=== PATIENT | male | born 1955 | race Caucasian/White ===

== ENCOUNTER 2016-09-19 16:36 | Emergency (ER) | payer OTHER, MEDICARE ==
[~2016-09-19] VITALS: Ht 175.2 cm; Wt 57.6 kg
[~2016-09-19 16:36] MED LIST: ASPIRIN DELAYE325 MG PO; ASPIRIN81 M1 PO; ATROVENT0.018 MG/A INH; CIPRO500 MG PO; CIPRODEX 0.3%-7.5 ML OT; CLARITIN10 MG PO; DAYPRO600 M1 PO; DOXYCYCLINE100 M2 PO; NKHM; PREDNICOT20 MG PO; PREDNISONE10 MG PO; TRIMOX500 MG PO; TYLENOL325 M2 PO; Tessalon Perle100 MG PO; VIBRAMYCIN100 MG PO; VITAMIN D400 I1 PO
[2016-09-19 17:32] LABS: BASO # 0.2 10*3/uL (0.0-0.1); BASO % 2.1 % (0.0-1.0); EOS # 0.5 10*3/uL (0.0-0.4); EOS % 4.9 % (1.0-4.0); HEMOGLOBIN 15.4 g/dl (14.0-18.0); LYMPH # 2.7 10*3/uL (1.3-4.4); LYMPH % 28.2 % (27.0-41.0); MEAN CELL VOLUME 93.4 fl (80.0-94.0); MEAN CORPUSCULAR HGB 32.7 pg (27.0-31.0); MEAN PLATELET VOLUME 9.5 fl (9.6-12.3); MONO # 0.9 10*3/uL (0.1-1.0); MONO % 8.8 % (3.0-9.0); NEUT # 5.4 10*3/uL (2.3-7.9); NEUT % 55.7 % (47.0-73.0); PLATELET COUNT AUTOMATED 239 10*3/uL (130-400); RED BLOOD COUNT 4.71 10*6/uL (4.50-5.90); RED CELL DISTRI WIDTH 12.8 % (0-14.5); WHITE BLOOD COUNT 9.7 10*3/uL (4.8-10.8)
[2016-09-19 17:44] LABS: BUN 11 mg/dl (7-24); CARBON DIOXIDE 25 mmol/L (21-32); CHLORIDE 103 mmol/L (98-107); EST GLOM FILT AFRICAN AMERICAN > 60 ml/min; GLUCOSE 105 mg/dL (65-99); POTASSIUM 3.8 mmol/L (3.5-5.1); SODIUM 140 mmol/L (136-145)
[2016-09-19 18:08] LABS: BILIRUBIN NEGATIVE (NEGATIVE); BLOOD NEGATIVE (NEGATIVE); CLARITY SL CLOUDY (CLEAR); COLOR YELLOW (YELLOW); GLUCOSE NEGATIVE (NEGATIVE); KETONE NEGATIVE (NEGATIVE); LEUKO ESTERASE NEGATIVE (NEGATIVE); NITRITE NEGATIVE (NEGATIVE); PROTEIN NEGATIVE (NEGATIVE); SPECIFIC GRAVITY <= 1.005 (1.005-1.030); UROBILINOGEN 0.2 E.U./dl (0.2-1.0)
[2016-09-19 18:24] LABS: BACTERIA TRACE; EPITHELIAL CELLS 0-2; RBC 0-2 rbc/hpf (0-2); URINE REFLEX COMMENT NO (NO); WBC 0-2 wbc/hpf (0-5)
== END 2016-09-19 19:43 | disposition home or self-care (01) ==
LOC: ED 16:36
PROVIDERS: Emergency Medicine
DX: F41.9 Anxiety disorder, unspecified (principal); R20.0 Anesthesia of skin; M79.661 Pain in right lower leg; F17.200 Nicotine dependence, unspecified, uncomplicated; Z79.82 Long term (current) use of aspirin; Z79.899 Other long term (current) drug therapy; Z85.46 Personal history of malignant neoplasm of prostate

== ENCOUNTER 2016-09-30 19:33 | Emergency (ER) | payer MEDICARE, OTHER ==
[~2016-09-30] VITALS: Ht 175.2 cm; Wt 57.6 kg
[2016-09-30 20:07] LABS: BASO # 0.2 10*3/uL (0.0-0.1); BASO % 2.7 % (0.0-1.0); EOS # 0.5 10*3/uL (0.0-0.4); EOS % 7.3 % (1.0-4.0); HEMOGLOBIN 14.9 g/dl (14.0-18.0); LYMPH # 3.2 10*3/uL (1.3-4.4); MEAN CELL VOLUME 93.7 fl (80.0-94.0); MEAN CORPUSCULAR HGB 32.5 pg (27.0-31.0); MEAN CORPUSCULAR HGB CONC 34.7 g/dl (33.0-37.0); MEAN PLATELET VOLUME 9.1 fl (9.6-12.3); MONO # 0.7 10*3/uL (0.1-1.0); NEUT # 2.7 10*3/uL (2.3-7.9); NEUT % 36.9 % (47.0-73.0); PLATELET COUNT AUTOMATED 224 10*3/uL (130-400); RED BLOOD COUNT 4.59 10*6/uL (4.50-5.90); RED CELL DISTRI WIDTH 13.1 % (0-14.5); WHITE BLOOD COUNT 7.3 10*3/uL (4.8-10.8)
[2016-09-30 20:23] LABS: ALBUMIN 3.7 gm/dl (3.1-4.5); ALKALINE PHOSPHATASE 60 U/L (45-117); BILIRUBIN, TOTAL 0.4 mg/dl (0.2-1.0); BUN 11 mg/dl (7-24); CARBON DIOXIDE 25 mmol/L (21-32); CHLORIDE 103 mmol/L (98-107); EST GLOM FILT AFRICAN AMERICAN > 60 ml/min; GLUCOSE 87 mg/dL (65-99); POTASSIUM 3.7 mmol/L (3.5-5.1); SGOT/AST 35 IU/L (3-35); SGPT/ALT 21 U/L (12-78); SODIUM 141 mmol/L (136-145); TOTAL PROTEIN 7.4 gm/dL (6.4-8.2)
[2016-09-30 20:30] LABS: BILIRUBIN NEGATIVE (NEGATIVE); BLOOD NEGATIVE (NEGATIVE); CLARITY CLEAR (CLEAR); COLOR YELLOW (YELLOW); GLUCOSE NEGATIVE (NEGATIVE); KETONE NEGATIVE (NEGATIVE); LEUKO ESTERASE NEGATIVE (NEGATIVE); NITRITE NEGATIVE (NEGATIVE); PROTEIN NEGATIVE (NEGATIVE); SPECIFIC GRAVITY <= 1.005 (1.005-1.030); UROBILINOGEN 0.2 E.U./dl (0.2-1.0)
[2016-09-30 20:36] LABS: BACTERIA 1+; URINE REFLEX COMMENT NO (NO); WBC 0-2 wbc/hpf (0-5)
[2016-09-30 20:38] LABS: URINE AMPHETAMINES < 1000 (1000ng/ml); URINE BARBITURATES < 200 (200ng/ml); URINE COCAINE < 300 (300ng/ml)
== END 2016-10-01 08:37 | disposition home or self-care (01) ==
LOC: ED 19:33
PROVIDERS: Emergency Medicine Emergency Medical Services
DX: F10.120 Alcohol abuse with intoxication, uncomplicated (principal); F41.9 Anxiety disorder, unspecified; F17.200 Nicotine dependence, unspecified, uncomplicated; Z85.46 Personal history of malignant neoplasm of prostate; Z79.82 Long term (current) use of aspirin; Z79.899 Other long term (current) drug therapy

== ENCOUNTER 2016-10-16 18:42 | Emergency (ER) | payer MEDICARE, OTHER ==
[~2016-10-16] VITALS: Ht 177.8 cm; Wt 74.8 kg
[2016-10-16 19:48] LABS: BASO # 0.2 10*3/uL (0.0-0.1); BASO % 2.4 % (0.0-1.0); EOS # 0.4 10*3/uL (0.0-0.4); EOS % 5.5 % (1.0-4.0); HEMOGLOBIN 13.7 g/dl (14.0-18.0); LYMPH # 2.1 10*3/uL (1.3-4.4); LYMPH % 29.2 % (27.0-41.0); MEAN CELL VOLUME 94.8 fl (80.0-94.0); MEAN CORPUSCULAR HGB 32.5 pg (27.0-31.0); MEAN CORPUSCULAR HGB CONC 34.3 g/dl (33.0-37.0); MONO # 0.6 10*3/uL (0.1-1.0); MONO % 8.8 % (3.0-9.0); NEUT # 3.8 10*3/uL (2.3-7.9); PLATELET COUNT AUTOMATED 214 10*3/uL (130-400); RED BLOOD COUNT 4.22 10*6/uL (4.50-5.90); RED CELL DISTRI WIDTH 13.1 % (0-14.5); WHITE BLOOD COUNT 7.1 10*3/uL (4.8-10.8)
[2016-10-16 20:00] LABS: BUN 8 mg/dl (7-24); CARBON DIOXIDE 27 mmol/L (21-32); CHLORIDE 108 mmol/L (98-107); EST GLOM FILT AFRICAN AMERICAN > 60 ml/min; GLUCOSE 90 mg/dL (65-99); POTASSIUM 3.3 mmol/L (3.5-5.1); SODIUM 146 mmol/L (136-145)
[2016-10-16 20:08] LABS: BILIRUBIN NEGATIVE (NEGATIVE); BLOOD NEGATIVE (NEGATIVE); CLARITY CLEAR (CLEAR); COLOR YELLOW (YELLOW); GLUCOSE NEGATIVE (NEGATIVE); KETONE NEGATIVE (NEGATIVE); LEUKO ESTERASE NEGATIVE (NEGATIVE); NITRITE NEGATIVE (NEGATIVE); PH 5.5 (5.0-9.0); PROTEIN NEGATIVE (NEGATIVE); SPECIFIC GRAVITY <= 1.005 (1.005-1.030); UROBILINOGEN 0.2 E.U./dl (0.2-1.0)
[2016-10-16 20:18] LABS: URINE AMPHETAMINES < 1000 (1000ng/ml); URINE BARBITURATES < 200 (200ng/ml); URINE COCAINE < 300 (300ng/ml)
[2016-10-16 20:31] LABS: EPITHELIAL CELLS 0-2
== END 2016-10-17 10:30 | disposition home or self-care (01) ==
LOC: ED 18:42
PROVIDERS: Emergency Medicine Emergency Medical Services
DX: F10.120 Alcohol abuse with intoxication, uncomplicated (principal); F41.9 Anxiety disorder, unspecified; F17.200 Nicotine dependence, unspecified, uncomplicated; E78.5 Hyperlipidemia, unspecified; Z79.82 Long term (current) use of aspirin

== ENCOUNTER 2016-12-27 08:33 | Emergency (ER) | payer MEDICARE, OTHER ==
[~2016-12-27] VITALS: Ht 167.6 cm; Wt 57.6 kg
[2016-12-27 08:59] LABS: BASO # 0.1 10*3/uL (0.0-0.1); BASO % 1.6 % (0.0-1.0); EOS # 0.4 10*3/uL (0.0-0.4); EOS % 4.9 % (1.0-4.0); HEMATOCRIT 42.6 % (42.0-52.0); HEMOGLOBIN 14.2 g/dl (14.0-18.0); LYMPH # 1.5 10*3/uL (1.3-4.4); LYMPH % 16.5 % (27.0-41.0); MEAN CELL VOLUME 96.8 fl (80.0-94.0); MEAN CORPUSCULAR HGB 32.3 pg (27.0-31.0); MEAN CORPUSCULAR HGB CONC 33.3 g/dl (33.0-37.0); MEAN PLATELET VOLUME 9.5 fl (9.6-12.3); MONO # 0.8 10*3/uL (0.1-1.0); MONO % 9.3 % (3.0-9.0); NEUT # 5.9 10*3/uL (2.3-7.9); NEUT % 67.5 % (47.0-73.0); PLATELET COUNT AUTOMATED 232 10*3/uL (130-400); RED CELL DISTRI WIDTH 14.2 % (0-14.5); WHITE BLOOD COUNT 8.8 10*3/uL (4.8-10.8)
[2016-12-27 09:07] LABS: PROTHROMBIN TIME 10.9 SECONDS (9.0-12.4)
[2016-12-27 09:14] LABS: ALKALINE PHOSPHATASE 67 U/L (45-117); BILIRUBIN, TOTAL 0.5 mg/dl (0.2-1.0); BUN 7 mg/dl (7-24); C-REACTIVE PROTEIN 1.28 MG/DL (0-0.3); CARBON DIOXIDE 29 mmol/L (21-32); CHLORIDE 108 mmol/L (98-107); CKMB 2.1 ng/ml (0.5-3.6); CPK 421 U/L (39-308); EST GLOM FILT AFRICAN AMERICAN > 60 ml/min; GLUCOSE 102 mg/dL (65-99); MAGNESIUM 1.9 mg/dL (1.5-2.1); POTASSIUM 3.4 mmol/L (3.5-5.1); SGOT/AST 42 IU/L (3-35); SGPT/ALT 28 U/L (12-78); SODIUM 144 mmol/L (136-145); TOTAL PROTEIN 6.5 gm/dL (6.4-8.2)
[2016-12-27 09:17] LABS: TROPONIN I < 0.015 ng/ml (<0.045)
== END 2016-12-27 10:31 | disposition home or self-care (01) ==
LOC: ED 08:33
PROVIDERS: Emergency Medicine
DX: R55 Syncope and collapse (principal); J44.9 Chronic obstructive pulmonary disease, unspecified; F17.210 Nicotine dependence, cigarettes, uncomplicated; Z79.82 Long term (current) use of aspirin; Z79.899 Other long term (current) drug therapy; Z85.46 Personal history of malignant neoplasm of prostate

== ENCOUNTER 2017-01-07 16:19 | Emergency (ER) | payer OTHER ==
[~2017-01-07] VITALS: Ht 177.8 cm; Wt 68.0 kg
[2017-01-07 16:39] LABS: BASO # 0.2 10*3/uL (0.0-0.1); BASO % 1.7 % (0.0-1.0); EOS # 0.7 10*3/uL (0.0-0.4); EOS % 6.6 % (1.0-4.0); HEMATOCRIT 40.7 % (42.0-52.0); HEMOGLOBIN 13.8 g/dl (14.0-18.0); LYMPH # 2.7 10*3/uL (1.3-4.4); LYMPH % 25.7 % (27.0-41.0); MEAN CELL VOLUME 97.4 fl (80.0-94.0); MEAN CORPUSCULAR HGB CONC 33.9 g/dl (33.0-37.0); MEAN PLATELET VOLUME 9.4 fl (9.6-12.3); MONO % 9.8 % (3.0-9.0); NEUT # 5.8 10*3/uL (2.3-7.9); NEUT % 55.9 % (47.0-73.0); PLATELET COUNT AUTOMATED 258 10*3/uL (130-400); RED BLOOD COUNT 4.18 10*6/uL (4.50-5.90); RED CELL DISTRI WIDTH 14.2 % (0-14.5); WHITE BLOOD COUNT 10.4 10*3/uL (4.8-10.8)
[2017-01-07] MEDS ORDERED: NEURONTIN100 MG PO (16:50)
[2017-01-07] MEDS ORDERED: MELATONIN3 MG PO (16:50)
[2017-01-07] MEDS ORDERED: CELEXA20 MG PO (16:51)
[2017-01-07] MEDS ORDERED: CETIRIZINE10 MG PO (16:51)
[2017-01-07 16:53] LABS: BUN 8 mg/dl (7-24); CARBON DIOXIDE 22 mmol/L (21-32); CHLORIDE 107 mmol/L (98-107); EST GLOM FILT AFRICAN AMERICAN > 60 ml/min; GLUCOSE 79 mg/dL (65-99); POTASSIUM 3.3 mmol/L (3.5-5.1); SODIUM 141 mmol/L (136-145)
== END 2017-01-07 17:39 | disposition home or self-care (01) ==
LOC: ED 16:19
PROVIDERS: Emergency Medicine
DX: R55 Syncope and collapse (principal); R53.1 Weakness; R42 Dizziness and giddiness; J44.9 Chronic obstructive pulmonary disease, unspecified; Z79.82 Long term (current) use of aspirin; Z79.899 Other long term (current) drug therapy

== ENCOUNTER 2017-04-14 17:55 | Emergency (ER) | payer MEDICARE, OTHER ==
[~2017-04-14] VITALS: Ht 175.2 cm; Wt 55.3 kg
[~2017-04-14 17:55] MED LIST changes: +CELEXA20 MG PO; +CETIRIZINE10 MG PO; +MELATONIN3 MG PO; +NEURONTIN100 MG PO
[2017-04-14 19:39] LABS: HEMATOCRIT 43.5 % (42.0-52.0); MEAN CELL VOLUME 93.1 fl (80.0-94.0); MEAN CORPUSCULAR HGB 32.1 pg (27.0-31.0); MEAN CORPUSCULAR HGB CONC 34.5 g/dl (33.0-37.0); MEAN PLATELET VOLUME 9.4 fl (9.6-12.3); PLATELET COUNT AUTOMATED 276 10*3/uL (130-400); RED BLOOD COUNT 4.67 10*6/uL (4.50-5.90); RED CELL DISTRI WIDTH 13.6 % (0-14.5); WHITE BLOOD COUNT 9.7 10*3/uL (4.8-10.8)
[2017-04-14 19:53] LABS: ALBUMIN 3.7 gm/dl (3.1-4.5); ALKALINE PHOSPHATASE 89 U/L (45-117); BUN 9 mg/dl (7-24); CHLORIDE 105 mmol/L (98-107); CREATININE 0.73 mg/dL (0.70-1.30); POTASSIUM 3.9 mmol/L (3.5-5.1); SGOT/AST 33 IU/L (3-35); SGPT/ALT 21 U/L (12-78); SODIUM 139 mmol/L (136-145); TOTAL PROTEIN 8.3 gm/dL (6.4-8.2)
[2017-04-14 19:54] LABS: BILIRUBIN NEGATIVE (NEGATIVE); BLOOD NEGATIVE (NEGATIVE); CLARITY CLEAR (CLEAR); COLOR YELLOW (YELLOW); GLUCOSE NEGATIVE (NEGATIVE); KETONE NEGATIVE (NEGATIVE); LEUKO ESTERASE NEGATIVE (NEGATIVE); NITRITE NEGATIVE (NEGATIVE); SPECIFIC GRAVITY <= 1.005 (1.005-1.030); UROBILINOGEN 0.2 E.U./dl (0.2-1.0)
[2017-04-14 19:56] LABS: ACETAMINOPHEN (TYLENOL) < 2.0 ug/ml (10-30)
[2017-04-14 20:02] LABS: BASOPHILS 3 % (0-1); TOTAL CELLS COUNTED 100 #CELLS
[2017-04-14 20:03] LABS: PLATELET SUFFICIENCY NORMAL (NORMAL)
[2017-04-14 20:03] LABS: URINE AMPHETAMINES < 1000 (1000ng/ml); URINE BARBITURATES < 200 (200ng/ml); URINE BENZODIAZEPINES < 200 (200ng/ml); URINE CANNABINOIDS (THC) < 50 (50ng/ml); URINE COCAINE < 300 (300ng/ml); URINE METHADONE < 300 (300ng/ml); URINE OPIATES < 300 (300ng/ml)
[2017-04-14 20:04] LABS: URINE PHENCYCLIDINE < 25 (25ng/ml)
[2017-04-14 20:08] LABS: BACTERIA 1+; EPITHELIAL CELLS 0-2; RBC 0-2 rbc/hpf (0-2); WBC 0-2 wbc/hpf (0-5)
[2017-04-15] MEDS ORDERED: ONCE DAILY1 EACH PO (07:25)
[2017-04-15] MEDS ORDERED: ATROVENT HFA12.9 GM INH (11:45)
[2017-04-15] MEDS ORDERED: REMERON15 M2 PO (11:47)
[2017-04-16] MEDS ORDERED: DULOXETINE HCL30 MG PO (09:09)
== END 2017-04-15 08:10 | disposition short-term general hospital (02) ==
LOC: ED 17:55
PROVIDERS: Physician Assistant
DX: R45.851 Suicidal ideations (principal); F32.9 Major depressive disorder, single episode, unspecified; F41.9 Anxiety disorder, unspecified; E78.5 Hyperlipidemia, unspecified; I95.9 Hypotension, unspecified; F17.200 Nicotine dependence, unspecified, uncomplicated; Z90.89 Acquired absence of other organs; Z79.899 Other long term (current) drug therapy; Z79.82 Long term (current) use of aspirin; Z85.46 Personal history of malignant neoplasm of prostate

== ENCOUNTER 2017-04-15 06:27 | Inpatient (IN) | payer MEDICARE, OTHER ==
[~2017-04-15] VITALS: Ht 175.2 cm; Wt 53.6 kg
--- NOTE | ~2017-04-15 | DS ---
[place], [place] DISCHARGE SUMMARY NAME: REYNA ROBERSON [facility] #: [id number] UNIT #: [id number] ROOM: 314 DOCTOR: KWAME ESPARZA MD BIRTHDATE: [birth year] DOS: 04/16/2017 CHIEF COMPLAINT: "I was so depressed, I was thinking of hurting myself, but I would never do it." HISTORY OF PRESENT ILLNESS: This is a 62-year-old white male who was admitted through the Emergency Room at [facility] due to increased depression with fleeting suicidal thoughts with a plan. He had initially presented to the Emergency Room acutely intoxicated and at that point in time was stating that he wanted to kill himself; however, as his alcohol level decreased, he continued to state that he was suicidal, but stated that he would never do so. He was admitted just to make certain that he was not necessarily lethal. He did endorse poor sleep and appetite, low energy, anhedonia, hopeless, helpless feelings, crying spells and inability to cope. He also reports chronic pain issues which is one of the major stressors for him. PAST MEDICAL HISTORY: Remarkable for prostate cancer, hyperlipidemia, protein calorie malnutrition, alcohol abuse, anemia and anxiety. SUMMARY OF HOSPITAL COURSE: The patient was admitted to the unit where his Remeron was discontinued in lieu of Cymbalta 30 mg at bedtime. As the patient engaged in individual and coburn milieu activities, he did voice positive plans for the future and states that he and his have been raising many of his grandchildren and this is one of his major enjoyment in his life. His who is battling breast cancer also needs his support and he states that he is very much attuned to the needs of them as a couple and as a family. After one night of good sleep with the Cymbalta, he did report that he tolerated it well and was hopeful that the medication was working. He did request discharge early stating that he has outpatient followup already set with the DC in [place] and he convincingly denied suicidal thoughts, reporting positive plans for the future. He was discharged then with his prescriptions being sent to [facility]. MENTAL STATUS AT DISCHARGE: The patient is alert and oriented to person, place and time. Mood does seem to be euthymic. Affect appropriate. There are no symptoms of hypomania or margo. There are no auditory or visual hallucinations. No delusions, no paranoia present. Short, intermediate and long-term memories were intact. FINAL DIAGNOSES AT DISCHARGE: Major depression, recurrent. PLAN: His prescriptions have been e scribed to [facility]. He will have followup at the [facility] in [place]. [place], [place] DISCHARGE SUMMARY NAME: REYNA ROBERSON UNIT #: [id number] ROOM: [facility] DOCTOR: KWAME ESPARZA MD BIRTHDATE: [birth year] KWAME ESPARZA MD CM:DISCHCATINA 6 11 KWAME ESPARZA MD 04/16/171810 interface
--- NOTE | ~2017-04-15 | WRIGHTHP ---
[place], [place] PATIENT HISTORY AND PHYSICAL EXAM NAME: REYNA ROBERSON [facility] #: [id number] UNIT #: [id number] ROOM: 314 DOCTOR: KWAME ESPARZA MD BIRTHDATE: [birth year] DOS: 04/15/2017 HISTORY OF PRESENT ILLNESS: This is a 62-year-old white male who was admitted through the Emergency Room at [facility] due to increased depression with fleeting suicidal thoughts and a plan. The patient had presented to the Emergency Room stating that he had been depressed for several weeks now and felt that the only way out was through suicide. He did appear at the Emergency Room acutely intoxicated with alcohol; however, as his alcohol level decreased, he continued to express continued depression as well as suicidal thoughts with a plan. He endorsed poor sleep and appetite, energy, anhedonia, hopeless, helpless feelings, crying spells, and inability to cope. He is admitted now to rule out organic factors, to stabilize on medication, to engage in individual and coburn milieu activities, returning home when stable. PAST MEDICAL HISTORY: Remarkable for hyperlipidemia, prostate cancer, protein calorie malnutrition, history of alcohol abuse, anemia and anxiety. MENTAL STATUS: The patient is alert and oriented to person, place and time. He does tend to be somewhat vague. He is rather flat and blunted; however, and does endorse multiple neurovegetative symptoms including positive suicidal thoughts with a plan. DIAGNOSES: Major depression, recurrent and dysthymic disorder. PLAN: I will start him on Cymbalta 30 mg at bedtime. We will engage in individual and coburn milieu activity with the plan to return back home or to the least restrictive environment when stable. KWAME ESPARZA MD CM:HISPHYS:PATIENT HISTORY AND PHYSICAL EXAMINATION 3 4 KWAME ESPARZA MD 04/15/1754 interface
--- NOTE | 2017-04-15 06:34 | NUR ---
DR ESPARZA PHONED UNIT @ 7645 & ACCEPTED PT TO BE ADMITTED WITH DIAGNOSIS OF MAJOR DEPRESSIVE DISORDER RECURRENT. STATED HE WOULD GIVE ORDERS WHEN HE GETS HERE.
[2017-04-15 06:56] VITALS: BP 102/58
--- NOTE | 2017-04-15 06:58 | NUR ---
REYNA ROBERSON a 62 year old M admitted via wheel chair from the EMERGENCY ROOM as a voluntary admission. Arrived on unit at 0648. ALLERGIES: NKA. Vital signs are: 98.9-80-20 102/58. The client signed the following forms with stated understanding: Consent to Voluntary Admission and Hospitalization, Consent and Release Forms/Receipt of Rights, Behavioral Health Consent Form, Admitted under the services of Dr. VILMA ECHEVERRIAKWAME WITH ADMITTING DIAGNOSIS OF MAJOR DEPRESSIVE DISORDER RECURRENT. A search was conducted and hazardous articles were removed. Client was oriented to the unit. JEANNE PEREZ
[2017-04-15] MEDS ORDERED: ONCE DAILY1 EACH PO (07:25)
--- NOTE | 2017-04-15 07:28 | NUR ---
DR DIAMOND NOTIFIED OF MEDICAL CONSULT.
[2017-04-15 08:45] VITALS: BP 110/60
[2017-04-15 10:03] VITALS: BP 110/60
--- NOTE | 2017-04-15 11:20 | NUR ---
MMSE completed with patient. Patient rights, Use and disclosure of health information, consent to photograph, Personal crisis prevention plan, and informed consent for medication reviewed with Rogers. He did sign after stating understanding. Psychiatric nursing assessment completed @ this time. Rogers is cooperative throughout interviewing process. Dr. Wyman in to see Rogers. Dr. Meredith also in to see him, as well.
[2017-04-15] MEDS ORDERED: ATROVENT HFA12.9 GM INH (11:45)
[2017-04-15] MEDS ORDERED: REMERON15 M2 PO (11:47)
[2017-04-15 12:51] LABS: BASO # 0.2 10*3/uL (0.0-0.1); BASO % 1.4 % (0.0-1.0); EOS # 0.4 10*3/uL (0.0-0.4); EOS % 3.5 % (1.0-4.0); HEMATOCRIT 42.8 % (42.0-52.0); HEMOGLOBIN 14.4 g/dl (14.0-18.0); LYMPH # 2.2 10*3/uL (1.3-4.4); MEAN CELL VOLUME 96.2 fl (80.0-94.0); MEAN CORPUSCULAR HGB 32.4 pg (27.0-31.0); MEAN CORPUSCULAR HGB CONC 33.6 g/dl (33.0-37.0); MONO # 1.3 10*3/uL (0.1-1.0); MONO % 10.7 % (3.0-9.0); NEUT # 7.6 10*3/uL (2.3-7.9); NEUT % 65.1 % (47.0-73.0); PLATELET COUNT AUTOMATED 275 10*3/uL (130-400); RED BLOOD COUNT 4.45 10*6/uL (4.50-5.90); RED CELL DISTRI WIDTH 13.8 % (0-14.5); WHITE BLOOD COUNT 11.7 10*3/uL (4.8-10.8)
[2017-04-15 13:05] LABS: ALBUMIN 3.7 gm/dl (3.1-4.5); ALKALINE PHOSPHATASE 78 U/L (45-117); BUN 11 mg/dl (7-24); CHLORIDE 101 mmol/L (98-107); CREATININE 0.82 mg/dL (0.70-1.30); POTASSIUM 4.1 mmol/L (3.5-5.1); SGOT/AST 27 IU/L (3-35); SGPT/ALT 20 U/L (12-78); SODIUM 139 mmol/L (136-145); TOTAL PROTEIN 7.7 gm/dL (6.4-8.2)
--- NOTE | 2017-04-15 13:22 | NUR ---
Ameya Lal Patient did come to group this morning but was unable to attend or participate. Patient was called from room by nurse.
--- NOTE | 2017-04-15 13:30 | NUR ---
VM from [facility] ([phone] et [phone]) requested clinicals be faxed for Pt. fax [phone]. [facility] email sent to GERALD Rosales.
--- NOTE | 2017-04-15 15:12 | NUR ---
PHYSICAL THERAPY EVLAUTION COMPLETED. PATIENT IS PLEASANT AND VERY COOPERATIVE. PATIENT FEELS HE WILL ONLY NEED TO BE IN THE HOSPITAL FOR A SHORT TIME AND THEN WILL GO BACK HOME WITH HIS . PATIENT WAS INDEPENDENT WITH ADL'S PRIOR AND USED A WALKING STICK ONLY WHEN OUTSIDE OF THE HOME. PATIENT DENIED PAIN. DIDINET FULLY PARTICIPATED AND VERBALIZED UNDERSTANDING OF NO FURTHER PT RECOMMENDED AFTER TODAY'S EVALUATION. TRANSFERS, BED MOBILITY: INDEPENDENT. GAIT WITH WALKER X 500FT STEADY/NO ASSISTANCE. GAIT WITHOUT WALKER X 100FT WITHOUT SAFETY CONCERNS WITH SBA; INSTRUCTED PATIENT TO CONTINUE TO USE WALKER HE IS WALKING VERY FREQUENTLY. NO SOB OBSERVED OR REPORTED DURING THIS EVAL. PATIENT VERBALIZED UNDERSTANDING OF FREQUENT REST BREAKS D/T HX OF COPD. PATIENT CONTINUED TO WALK THE HALLWAYS WITH HIS WALKER AFTER OUR EVALUATION TODAY. PT EVALUATION LOW COMPLEXITY THANK YOU FOR THIS REFERRAL, NAEL ANGEL, PT
--- NOTE | 2017-04-15 15:25 | NUR ---
Rogers is compliant with taking his medications. On 1:1 interaction he denies any current thoughts to harm himself. Reports that he is experiencing some difficulty with coping with current stressors. States that he is "worried about my grandson who is trying to go to college and my daughter, his mother, won't help him." Most recently he states that he became so upset with "everything that I just started drinking." States that he doesn't feel that he has a problem with alcohol, however, he relates that he has been "drinking since I was in the [place]." When this subject was again approached, he states that he is seeing a counselor @ [place] for current issues, as well. Dr. Wyman in to see him today. Dr. Meredith also in this morning. Rogers has not expressed any thoughts of self harm or exhibited any self abusive behavior throughout the day. Conversing appropriately. No overt s/s of any sensory disturbances are present. Thoughts are organized and goal directed. Utilizes a walking cane @ home to ambulate about and upon his arrival to this unit, he has been utilizing a walker. Refer to [facility] flowsheet for specific monitoring.
--- NOTE | 2017-04-15 15:34 | NUR ---
EV Patient refused to attend group this afternoon. Patient stated "I don't do BINGO." Tried encouraging patient multiple times but patient continued to refuse
[2017-04-15 20:12] VITALS: BP 120/70
--- NOTE | 2017-04-15 21:31 | NUR ---
24 HR chart check completed.
--- NOTE | 2017-04-16 06:13 | NUR ---
PT HAS BEEN OBSERVED ON Q 15 MIN CHECKS & HAS SLEPT QUIETLY THROUGHOUT THE SHIFT PAST 2129.
[2017-04-16 08:03] VITALS: BP 107/76
[2017-04-16] MEDS ORDERED: DULOXETINE HCL30 MG PO (09:09)
--- NOTE | 2017-04-16 09:47 | NUR ---
NOTIFFIED OF PT DISCHARGE SCHEDULED FOR TODAY.
--- NOTE | 2017-04-16 11:00 | NUR ---
SW spoke with [facility]. Pt was just at clinic the week before admission. next appointments are: 04/22/17 1pm, 05/26/17 and medical 07/03/17 at 9:30am. When Pt comes on the if he needs to be seen sooner by other providers, appointments will be adjusted.
--- NOTE | 2017-04-16 11:02 | NUR ---
SW requested permission from Director for [employer] due to Pt having no other way home.
--- NOTE | 2017-04-16 11:43 | NUR ---
Crafts:Scary Scarecrow/Reminiscing Patient did not attend group today. Patient "doesnt do crafts." Patient encouraged to join but continued to refuse
--- NOTE | 2017-04-16 12:00 | NUR ---
PT ALERT TO PERSON,PLACE,TIME AND SITUATION. PT MED COMPLAINT WITHOUT DIFFICULTY. PT DENIES ANY HOMICIDAL/SUICIDAL THOUGHTS. NO HALLUCINATIONS OR DELUSIONS NOTED. PT MOOD IS STABLE. PT RESTLESS AT TIMES, PACING UP AND DOWN THE [place]. PT INTERACTING WITH PEERS AND STAFF, PT PLEASANT AND COOPERATIVE. PT AMBULATORY THROUGHOUT UNIT, GAIT STEADY. PT CONTINENT OF BOWEL AND BLADDER. DISCHARGE PAPERWORK REVIEWED WITH PT. PT ENCOURGED TO KEEP FOLLOW UP APPTS, WITH MEDICAL DR, MENTAL HEALTH PROVIDER AND TO TAKE ALL MEDS PRESCRIBED.
--- NOTE | 2017-04-16 12:50 | NUR ---
PT DISCHARGED TO HOME VIA [facility].
--- NOTE | 2017-04-16 16:25 | NUR ---
Event Organizer Note: faxed dishcarge infor to the [facility] in [facility].
== END 2017-04-16 12:54 | disposition home or self-care (01) | DRG 885 ==
LOC: 3N 06:27
PROVIDERS: Internal Medicine Nephrology; ADMIT Psychiatry & Neurology Psychiatry
DX: F33.9 Major depressive disorder, recurrent, unspecified (principal); J44.9 Chronic obstructive pulmonary disease, unspecified; E78.5 Hyperlipidemia, unspecified; F34.1 Dysthymic disorder; F41.9 Anxiety disorder, unspecified; Z85.46 Personal history of malignant neoplasm of prostate; Z71.6 Tobacco abuse counseling; Z72.0 Tobacco use; Z90.79 Acquired absence of other genital organ(s); Z83.3 Family history of diabetes mellitus; Z80.0 Family history of malignant neoplasm of digestive organs; Z79.82 Long term (current) use of aspirin; Z79.899 Other long term (current) drug therapy

== ENCOUNTER → 2018-03-03 | Outpatient (CLI) | payer OTHER, MEDICARE ==
[~2018-03-03] MED LIST changes: +ATROVENT HFA12.9 GM INH; +DULOXETINE HCL30 MG PO; +ONCE DAILY1 EACH PO; +REMERON15 M2 PO
== END | disposition home or self-care (01) ==
LOC: RAD 16:38
DX: M25.541 Pain in joints of right hand (principal); M25.441 Effusion, right hand

== ENCOUNTER 2018-07-24 14:57 | Emergency (ER) | payer MEDICARE, OTHER ==
[~2018-07-24] VITALS: Ht 177.8 cm; Wt 56.2 kg
[2018-07-24] MEDS ORDERED: ZITHROMAX250 MG PO (16:58)
[2018-07-24] MEDS ORDERED: PREDNISONE10 MG PO (16:58)
== END 2018-07-24 17:03 | disposition home or self-care (01) ==
LOC: ED 14:57
DX: J44.9 Chronic obstructive pulmonary disease, unspecified (principal); F17.200 Nicotine dependence, unspecified, uncomplicated; Z79.899 Other long term (current) drug therapy; Z79.82 Long term (current) use of aspirin